=== PATIENT | female | born 1940 | race Caucasian/White ===

== ENCOUNTER 2019-10-06 09:15 | Day surgery (SDC) | payer MEDICARE ==
[2019-10-06] VITALS (10 sets, daily range): BP systolic 135–164; BP diastolic 57–68
[~2019-10-06] VITALS: Ht 154.9 cm; Wt 57.0 kg
[2019-10-06] MEDS ORDERED: normal saline 1,000 ML IV SCH (09:45)
[2019-10-06] MEDS ORDERED: diphenhydrAMINE 25mg capsule PO PRN (09:45)
[2019-10-06] MEDS ORDERED: HYDR12.55 PO (09:49)
[2019-10-06] MEDS ORDERED: AMIO200T62 PO (09:49)
[2019-10-06] MEDS ORDERED: EZET10TA6 PO (09:49)
[2019-10-06] MEDS ORDERED: AMLO5TAB PO (09:49)
[2019-10-06] MEDS ORDERED: LEVO100T PO (09:49)
[2019-10-06] MEDS ORDERED: POTA20TA19 PO (09:49)
[2019-10-06 10:37] LABS: BASOPHILS % (AUTO) 0.5 % (0-1); EOSINOPHILS % (AUTO) 0.2 % (0-6); HEMATOCRIT 41.5 % (35.0-45.0); HEMOGLOBIN 13.9 g/dl (12.0-16.0); LYMPHOCYTES # (AUTO) 1.1 X10'3 (1.1-4.8); LYMPHOCYTES % (AUTO) 12.2 % (21-51); MEAN CORPUSCULAR HEMOGLOBIN 35.5 PG (27.0-31.0); MEAN CORPUSCULAR HGB CONC 33.6 g/dL (33.0-36.5); MEAN CORPUSCULAR VOLUME 105.6 FL (78-98); MEAN PLATELET VOLUME 7.8 FL (7.4-10.4); MONOCYTES # (AUTO) 0.8 X10'3 (0-0.9); MONOCYTES % (AUTO) 9.5 % (2-12); NEUTROPHILS # (AUTO) 6.7 X10'3 (1.8-7.7); NEUTROPHILS % (AUTO) 77.6 % (42-75); PLATELET COUNT 245 X10'3 (140-440); RED BLOOD COUNT 3.93 X10'6 (4.20-5.60); RED CELL DISTRIBUTION WIDTH 12.4 % (11.5-14.5); WHITE BLOOD COUNT 8.6 X10'3 (4.5-11.0)
[2019-10-06 10:46] LABS: ALBUMIN 4.4 G/DL (3.4-5.0); ANION GAP 8 (8-16); BLOOD UREA NITROGEN 18 MG/DL (7-18); BUN/CREATININE RATIO 18.8 (6.6-38.0); CALCIUM 9.1 MG/DL (8.5-10.1); CHLORIDE 100 MMOL/L (99-107); CREATININE 0.96 MG/DL (0.40-0.90); GLUCOSE 99 MG/DL (70-104); MAGNESIUM 2.1 MG/DL (1.5-2.4); POTASSIUM 3.8 MMOL/L (3.5-5.1); SODIUM 136 MMOL/L (135-145); TOTAL CARBON DIOXIDE 28.4 MMOL/L (24-32); eGFR 56 ML/MIN
[2019-10-06] MEDS ORDERED: FLU VACC QS2019-20 36MOS UP/PF 60 MCG/0.5 ML SYRINGE IMVAC ONE (10:55)
[2019-10-06] MEDS ORDERED: midazolam 2 mg/2 ml injection ONE ×2 (11:40→12:12)
[2019-10-06] MEDS ORDERED: fentaNYL/PF 50MCG/1 ML 2ML syringe ONE (11:40)
[2019-10-06] MEDS ORDERED: iohexol 350MG/ML 100ml bottle IV ONE (11:41)
[2019-10-06] MEDS ORDERED: LIDOcaine 1% (10mg/ml)w/preservative injection 20ml MDV ONE (11:41)
[2019-10-06] MEDS ORDERED: iohexol 350 MG/ML 50ML vial IV ONE (11:41)
[2019-10-06] MEDS ORDERED: HYDROcodone/acetaminophen 10/325mg tab PO PRN (13:05)
[2019-10-06] MEDS ORDERED: proCHLORperazine 10 MG/2 ml inj IV PRN (13:05)
[2019-10-06] MEDS ORDERED: HYDROcodone/acetaminophen 5mg/325mg tablet PO PRN (13:05)
[2019-10-06] MEDS ORDERED: ondansetron/PF 4mg/2ml inj IV PRN (13:05)
== END 2019-10-06 16:45 | disposition home or self-care (01) ==
LOC: SSTAY O 09:15 → MED 3N 09:24 → SSTAY O 16:45
PROVIDERS: ATTEND Internal Medicine Cardiovascular Disease
DX: R07.9 Chest pain, unspecified (principal); R53.83 Other fatigue; I25.10 Atherosclerotic heart disease of native coronary artery without angina pectoris; I10 Essential (primary) hypertension; E03.9 Hypothyroidism, unspecified; I25.2 Old myocardial infarction; I35.0 Nonrheumatic aortic (valve) stenosis; F17.210 Nicotine dependence, cigarettes, uncomplicated; Z90.710 Acquired absence of both cervix and uterus; Z79.899 Other long term (current) drug therapy; Z98.890 Other specified postprocedural states; Z95.810 Presence of automatic (implantable) cardiac defibrillator; Z95.1 Presence of aortocoronary bypass graft; Z23 Encounter for immunization; Z72.89 Other problems related to lifestyle; Z88.2 Allergy status to sulfonamides; Z88.8 Allergy status to other drugs, medicaments and biological substances; Z88.5 Allergy status to narcotic agent; Z82.49 Family history of ischemic heart disease and other diseases of the circulatory system
CPT/HCPCS: 36415; 80048; 82948; 83735; 85025; 85610; 93005; 93459; 99152; 99153; C1769; C1894; G0008; J1644; J2001; J2250; J3010; Q0163; Q2037; Q9967; 76937; 93458; A4620; A6258; C1760

== ENCOUNTER 2022-12-24 07:15 | Emergency (ER) | payer MEDICARE ==
[~2022-12-24] VITALS: Ht 154.9 cm; Wt 56.1 kg
[~2022-12-24 07:15] MED LIST: AMIO200T72 PO; AMLO5TAB PO; EZET10TA6 PO; HYDR12.55 PO; LEVO100T PO; POTA-207 PO
[2022-12-24 07:27] VITALS: BP 150/76
[2022-12-24] MEDS ORDERED: HYDROcodone/acetaminophen 5mg/325mg tablet PO ONE (09:35)
[2022-12-24] MEDS ORDERED: HYDR-3965 PO (10:07)
== END 2022-12-24 10:22 | disposition home or self-care (01) ==
LOC: ER 07:15
DX: B02.9 Zoster without complications (principal); B02.29 Other postherpetic nervous system involvement; Z88.2 Allergy status to sulfonamides; Z88.8 Allergy status to other drugs, medicaments and biological substances; Z88.5 Allergy status to narcotic agent; Z79.899 Other long term (current) drug therapy
CPT/HCPCS: 99283

== ENCOUNTER 2023-06-29 12:28 | Outpatient (CLI) | payer MEDICARE ==
[~2023-06-29 12:28] MED LIST changes: +LYR75C PO
[2023-06-29 13:04] LABS: BASOPHILS % (AUTO) 0.5 % (0-1); EOSINOPHILS % (AUTO) 0.2 % (0-6); HEMATOCRIT 38.4 % (35.0-45.0); LYMPHOCYTES # (AUTO) 1.3 X10'3 (1.1-4.8); LYMPHOCYTES % (AUTO) 16.2 % (21-51); MEAN CORPUSCULAR HEMOGLOBIN 35.5 PG (27.0-31.0); MEAN CORPUSCULAR HGB CONC 33.9 g/dL (33.0-36.5); MEAN CORPUSCULAR VOLUME 104.8 FL (78-98); MEAN PLATELET VOLUME 7.3 FL (7.4-10.4); MONOCYTES # (AUTO) 0.8 X10'3 (0-0.9); MONOCYTES % (AUTO) 9.4 % (2-12); NEUTROPHILS % (AUTO) 73.7 % (42-75); PLATELET COUNT 225 X10'3 (140-440); RED BLOOD COUNT 3.66 X10'6 (4.20-5.60); RED CELL DISTRIBUTION WIDTH 12.6 % (11.5-14.5); WHITE BLOOD COUNT 8.1 X10'3 (4.5-11.0)
[2023-06-29 13:15] LABS: APTT 28 SECONDS (22-32); PROTHROMBIN TIME 10.8 SECONDS (9.0-12.0)
[2023-06-29 13:24] LABS: ALANINE AMINOTRANSFERASE 34 U/L (12-78); ALBUMIN 3.5 G/DL (3.4-5.0); ALBUMIN/GLOBULIN RATIO 0.9 (1.1-1.5); ALKALINE PHOSPHATASE 74 IU/L (46-116); ANION GAP 6 (8-16); ASPARTATE AMINO TRANSFERASE 32 U/L (10-37); BILIRUBIN,TOTAL 0.4 MG/DL (0.1-1.0); BLOOD UREA NITROGEN 20 MG/DL (7-18); CALCIUM 8.4 MG/DL (8.5-10.1); CHLORIDE 101 MMOL/L (99-107); CREATININE 1.11 MG/DL (0.40-0.90); GLUCOSE 99 MG/DL (70-104); POTASSIUM 4.3 MMOL/L (3.5-5.1); PRO BRAIN NATRIURETIC PEPTIDE 1148 PG/ML (0-450); SODIUM 137 MMOL/L (135-145); TOTAL CARBON DIOXIDE 30.1 MMOL/L (24-32); TOTAL PROTEIN 7.5 G/DL (6.4-8.2); eGFR 47 ML/MIN
[2023-06-29] MEDS ORDERED: IODIXANOL 320 MG/ML INFUS..BTL 100ML IV ONE ×2 (13:41)
== END 2023-06-29 23:59 | disposition home or self-care (01) ==
LOC: RAD 12:28
PROVIDERS: ATTEND Internal Medicine Cardiovascular Disease
DX: I51.7 Cardiomegaly (principal); I65.23 Occlusion and stenosis of bilateral carotid arteries; I35.0 Nonrheumatic aortic (valve) stenosis; R06.02 Shortness of breath; M47.816 Spondylosis without myelopathy or radiculopathy, lumbar region; M41.86 Other forms of scoliosis, lumbar region; M85.88 Other specified disorders of bone density and structure, other site
CPT/HCPCS: 36415; 71046; 71275; 74174; 75572; 80053; 83880; 85025; 85610; 85730; 93880; 94010; 94727; 94729; J3490; Q9967

== ENCOUNTER 2023-08-10 06:59 | Day surgery (SDC) | payer MEDICARE ==
[2023-08-10] VITALS (10 sets, daily range): BP systolic 121–126; BP diastolic 52–88; PULSE 50–59; RESP 16; TEMP 97.7; O2SAT 92–98
[~2023-08-10] VITALS: Ht 165.1 cm; Wt 53.8 kg
[2023-08-10] MEDS ORDERED: sodium bicarbonate 1meq/ml syr 150 ML in dextrose 5%-water 1,000 ML IV SCH (07:40)
[2023-08-10] MEDS ORDERED: OMEG1CAP61 PO (07:40)
[2023-08-10] MEDS ORDERED: normal saline 1,000 ML IV SCH (07:40)
[2023-08-10] MEDS ORDERED: diphenhydrAMINE 25mg capsule PO PRN (07:40)
[2023-08-10] MEDS ORDERED: ASPI81TA52 PO (07:40)
[2023-08-10] MEDS ORDERED: VITA1CAP PO (07:40)
[2023-08-10] MEDS ORDERED: ROSU10TA28 PO (07:41)
[2023-08-10 07:48] LABS: BASOPHILS % (AUTO) 0.7 % (0-1); EOSINOPHILS # (AUTO) 0.1 X10'3 (0-0.9); EOSINOPHILS % (AUTO) 0.8 % (0-6); HEMATOCRIT 37.2 % (35.0-45.0); LYMPHOCYTES # (AUTO) 1.4 X10'3 (1.1-4.8); LYMPHOCYTES % (AUTO) 21.6 % (21-51); MEAN CORPUSCULAR HEMOGLOBIN 35.9 PG (27.0-31.0); MEAN CORPUSCULAR HGB CONC 34.9 g/dL (33.0-36.5); MEAN CORPUSCULAR VOLUME 102.9 FL (78-98); MEAN PLATELET VOLUME 7.2 FL (7.4-10.4); MONOCYTES # (AUTO) 0.9 X10'3 (0-0.9); MONOCYTES % (AUTO) 13.9 % (2-12); NEUTROPHILS # (AUTO) 4.1 X10'3 (1.8-7.7); PLATELET COUNT 244 X10'3 (140-440); RED BLOOD COUNT 3.62 X10'6 (4.20-5.60); RED CELL DISTRIBUTION WIDTH 12.5 % (11.5-14.5); WHITE BLOOD COUNT 6.5 X10'3 (4.5-11.0)
[2023-08-10] MEDS ORDERED: heparin 1,000unit/ml 10ml vial 10 ML ONE (07:51)
[2023-08-10] MEDS ORDERED: iohexol 350MG/ML 100ml bottle IV ONE ×2 (07:51→08:56)
[2023-08-10] MEDS ORDERED: LIDOcaine 1% 30ml preserv. free vial ONE (07:51)
[2023-08-10] MEDS ORDERED: fentaNYL/PF 50MCG/1 ML 2ML syringe ONE (07:51)
[2023-08-10] MEDS ORDERED: midazolam 1 mg/ML 2ml injection ONE ×2 (07:51→09:15)
[2023-08-10] MEDS ORDERED: iohexol 350 MG/ML 50ML vial IV ONE (07:51)
[2023-08-10 09:14] LABS: PROTHROMBIN TIME 10.5 SECONDS (9.0-12.0)
[2023-08-10] MEDS ORDERED: clopidogrel 300mg tablet ONE (09:17)
[2023-08-10 09:30] LABS: ALBUMIN 3.9 G/DL (3.4-5.0); ANION GAP 9 (8-16); BLOOD UREA NITROGEN 24 MG/DL (7-18); BUN/CREATININE RATIO 25.8 (10.0-20.0); CALCIUM 8.7 MG/DL (8.5-10.1); CHLORIDE 101 MMOL/L (99-107); CREATININE 0.93 MG/DL (0.40-0.90); GLUCOSE 76 MG/DL (70-104); MAGNESIUM 2.2 MG/DL (1.5-2.4); POTASSIUM 3.7 MMOL/L (3.5-5.1); SODIUM 137 MMOL/L (135-145); TOTAL CARBON DIOXIDE 27.4 MMOL/L (24-32); eCRCL 40 ML/MIN; eGFR 58 ML/MIN
[2023-08-10] MEDS ORDERED: normal saline 1000ml 1,000 ML IV SCH (10:05)
[2023-08-10] MEDS ORDERED: proCHLORperazine 10 MG/2 ml inj IV PRN (10:05)
[2023-08-10] MEDS ORDERED: HYDROcodone/acetaminophen 10/325mg tab PO PRN (10:05)
[2023-08-10] MEDS ORDERED: HYDROcodone/acetaminophen 5mg/325mg tablet PO PRN (10:05)
[2023-08-10] MEDS ORDERED: ondansetron/PF 4mg/2ml inj IV PRN (10:05)
== END 2023-08-10 13:00 | disposition home or self-care (01) ==
LOC: SSTAY O 06:59
PROVIDERS: ATTEND Internal Medicine Cardiovascular Disease
DX: I25.10 Atherosclerotic heart disease of native coronary artery without angina pectoris (principal); I10 Essential (primary) hypertension; E03.9 Hypothyroidism, unspecified; E78.00 Pure hypercholesterolemia, unspecified; I35.0 Nonrheumatic aortic (valve) stenosis; I25.2 Old myocardial infarction; Z79.82 Long term (current) use of aspirin; Z79.890 Hormone replacement therapy; Z79.899 Other long term (current) drug therapy; Z95.810 Presence of automatic (implantable) cardiac defibrillator; Z88.2 Allergy status to sulfonamides; Z88.5 Allergy status to narcotic agent; Z88.8 Allergy status to other drugs, medicaments and biological substances
CPT/HCPCS: 36415; 80048; 82948; 83735; 85025; 85610; 93005; 93460; 99152; 99153; C1874; C9600; J1644; J2250; J3010; J3490; J7030; Q9967; A6258; A6449; C1725; C1751; C1760; C1769; C1894

== ENCOUNTER 2023-12-07 11:35 | Emergency (ER) | payer MEDICARE ==
[~2023-12-07] VITALS: Ht 152.4 cm; Wt 53.8 kg
[~2023-12-07 11:35] MED LIST changes: +ASPI81TA52 PO; +CIPR-259 PO; +IBUP-24 PO; -LYR75C PO; +OMEG1CAP61 PO; -POTA-207 PO; +ROSU10TA72 PO; +TICA90TA2 PO; +VITA1CAP PO; +VITAMIN D 3
[2023-12-07 12:06] LABS: BASOPHILS % (AUTO) 0.7 % (0-1); EOSINOPHILS % (AUTO) 0.4 % (0-6); HEMATOCRIT 39.3 % (35.0-45.0); HEMOGLOBIN 13.4 g/dl (12.0-16.0); LYMPHOCYTES # (AUTO) 1.5 X10'3 (1.1-4.8); LYMPHOCYTES % (AUTO) 20.2 % (21-51); MEAN CORPUSCULAR HEMOGLOBIN 35.5 PG (27.0-31.0); MEAN CORPUSCULAR HGB CONC 34.1 g/dL (33.0-36.5); MEAN CORPUSCULAR VOLUME 104.1 FL (78-98); MEAN PLATELET VOLUME 7.4 FL (7.4-10.4); MONOCYTES # (AUTO) 0.8 X10'3 (0-0.9); MONOCYTES % (AUTO) 11.7 % (2-12); NEUTROPHILS # (AUTO) 4.8 X10'3 (1.8-7.7); PLATELET COUNT 209 X10'3 (140-440); RED BLOOD COUNT 3.77 X10'6 (4.20-5.60); RED CELL DISTRIBUTION WIDTH 12.4 % (11.5-14.5); WHITE BLOOD COUNT 7.2 X10'3 (4.5-11.0)
[2023-12-07 12:27] LABS: ALANINE AMINOTRANSFERASE 29 U/L (12-78); ALBUMIN 3.9 G/DL (3.4-5.0); ALBUMIN/GLOBULIN RATIO 1.1 (1.1-1.5); ALKALINE PHOSPHATASE 92 IU/L (46-116); ANION GAP 8 (8-16); ASPARTATE AMINO TRANSFERASE 25 U/L (10-37); BILIRUBIN,TOTAL 0.3 MG/DL (0.1-1.0); BLOOD UREA NITROGEN 15 MG/DL (7-18); BUN/CREATININE RATIO 16.1 (10.0-20.0); CHLORIDE 103 MMOL/L (99-107); CREATININE 0.93 MG/DL (0.40-0.90); GLUCOSE 105 MG/DL (70-104); POTASSIUM 4.3 MMOL/L (3.5-5.1); SODIUM 138 MMOL/L (135-145); TOTAL CARBON DIOXIDE 26.7 MMOL/L (24-32); TOTAL PROTEIN 7.6 G/DL (6.4-8.2); eCRCL 34 ML/MIN; eGFR 58 ML/MIN
[2023-12-07 12:33] LABS: PRO BRAIN NATRIURETIC PEPTIDE 2020 PG/ML (0-450)
[2023-12-07] MEDS ORDERED: iohexol 350MG/ML 100ml bottle IV ONE (14:42)
[2023-12-07] MEDS ORDERED: CLOP75TA34 PO (14:48)
[2023-12-07] MEDS ORDERED: POTA-366 PO (15:17)
[2023-12-07] MEDS ORDERED: FURO20TA4 PO (16:04)
[2023-12-07 16:59] VITALS: BP 134/80; PULSE 78; RESP 15; TEMP 97.9; O2SAT 98
== END 2023-12-07 17:02 | disposition home or self-care (01) ==
LOC: ER 11:36
DX: R06.09 Other forms of dyspnea (principal); R07.81 Pleurodynia; I25.2 Old myocardial infarction; Z88.2 Allergy status to sulfonamides; Z88.8 Allergy status to other drugs, medicaments and biological substances; Z79.899 Other long term (current) drug therapy; Z79.82 Long term (current) use of aspirin; Z98.890 Other specified postprocedural states
CPT/HCPCS: 36415; 71045; 71275; 80053; 83880; 84484; 85025; 93005; 99285; Q9967

== ENCOUNTER 2024-09-12 15:47 | Inpatient (IN) | payer MEDICARE ==
[~2024-09-12] VITALS: Ht 154.9 cm; Wt 52.2 kg
[~2024-09-12 15:47] MED LIST changes: -CIPR-259 PO; +CLOP75TA34 PO; +FURO20TA4 PO; +POTA-366 PO
[2024-09-12 16:25] LABS: BASOPHILS # (AUTO) 0.1 X10'3 (0-0.2); BASOPHILS % (AUTO) 0.6 % (0-1); EOSINOPHILS % (AUTO) 0.2 % (0-6); HEMATOCRIT 38.6 % (35.0-45.0); LYMPHOCYTES # (AUTO) 1.7 X10'3 (1.1-4.8); LYMPHOCYTES % (AUTO) 19.2 % (21-51); MEAN CORPUSCULAR HEMOGLOBIN 34.4 PG (27.0-31.0); MEAN CORPUSCULAR HGB CONC 33.7 g/dL (33.0-36.5); MEAN CORPUSCULAR VOLUME 102.1 FL (78-98); MEAN PLATELET VOLUME 8.2 FL (7.4-10.4); MONOCYTES # (AUTO) 1.5 X10'3 (0-0.9); MONOCYTES % (AUTO) 16.6 % (2-12); NEUTROPHILS # (AUTO) 5.6 X10'3 (1.8-7.7); NEUTROPHILS % (AUTO) 63.4 % (42-75); PLATELET COUNT 167 X10'3 (140-440); RED BLOOD COUNT 3.78 X10'6 (4.20-5.60); RED CELL DISTRIBUTION WIDTH 12.9 % (11.5-14.5); WHITE BLOOD COUNT 8.8 X10'3 (4.5-11.0)
[2024-09-12 16:38] LABS: ALANINE AMINOTRANSFERASE 14 U/L (12-78); ALBUMIN 3.5 G/DL (3.4-5.0); ALBUMIN/GLOBULIN RATIO 1.1 (1.1-1.5); ALKALINE PHOSPHATASE 118 IU/L (46-116); ANION GAP 7 (8-16); ASPARTATE AMINO TRANSFERASE 18 U/L (10-37); BILIRUBIN,TOTAL 0.6 MG/DL (0.1-1.0); BLOOD UREA NITROGEN 21 MG/DL (7-18); BUN/CREATININE RATIO 9.7 (10.0-20.0); CALCIUM 8.7 MG/DL (8.5-10.1); CHLORIDE 104 MMOL/L (99-107); CREATININE 2.16 MG/DL (0.40-0.90); GLUCOSE 106 MG/DL (70-104); POTASSIUM 4.5 MMOL/L (3.5-5.1); SODIUM 135 MMOL/L (135-145); TOTAL CARBON DIOXIDE 24.3 MMOL/L (24-32); TOTAL PROTEIN 6.6 G/DL (6.4-8.2); eCRCL 15 ML/MIN; eGFR 22 ML/MIN
[2024-09-12 16:45] LABS: PRO BRAIN NATRIURETIC PEPTIDE 16504 PG/ML (0-450)
[2024-09-12 16:46] LABS: PLATELET ESTIMATE NORMAL; STOMATOCYTES FEW; TOTAL CELLS COUNTED 100
[2024-09-12] MEDS ORDERED: normal saline 1000ml 1,000 ML IV ONE (17:35)
[2024-09-12] MEDS ORDERED: heparin 10,000 units/1 ML INJ IV ONE (17:35)
[2024-09-12] MEDS ORDERED: heparin 10,000 units/1 ML INJ IV PRN (17:40)
[2024-09-12] MEDS: aspirin 81mg tab.chew PO ONE (18:00)
[2024-09-12] MEDS: nitroGLYCERIN 0.2mg/hour patch TD ONE (18:01)
[2024-09-12] MEDS: heparin 10,000 units/1 ML INJ IV ONE (18:07)
[2024-09-12] MEDS: heparin 25,000 UNIT/250ml bag 250 ML IV PRN (18:10)
[2024-09-12] MEDS: MESSAGE TO NURSING IV ONE (18:11)
[2024-09-12] MEDS ORDERED: magnesium sulf-water 2g/50mL 50 ML IV PRN (18:15)
[2024-09-12] MEDS ORDERED: potassium Cl 40MEQ/1/2NS 520ml 520 ML IV PRN (18:15)
[2024-09-12] MEDS ORDERED: mag hydrox/Alum hydrox/simeth 30ml oral suspension PO PRN (18:15)
[2024-09-12] MEDS ORDERED: magnesium Cl slow-release 64mg tablet PO PRN (18:15)
[2024-09-12] MEDS ORDERED: magnesium sulf-water 4G/100mL 100 ML IV PRN (18:15)
[2024-09-12] MEDS ORDERED: acetaminophen 325mg tablet PO PRN ×2 (18:15)
[2024-09-12] MEDS ORDERED: ondansetron/PF 4mg/2ml inj IV PRN (18:15)
[2024-09-12] MEDS ORDERED: potassium Cl 20 mEq SR tablet PO PRN ×2 (18:15)
[2024-09-12 18:22] LABS: APTT 31 SECONDS (22-32); INR 1.1 INR; PROTHROMBIN TIME 11.1 SECONDS (9.0-12.0)
[2024-09-12] MEDS ORDERED: nitroGLYCERIN 0.4mg SUBLingual tab SL PRN (18:35)
[2024-09-12 19:34] LABS: HEMOGLOBIN A1C 5.6 % (4.5-6.2)
[2024-09-12] MEDS: furosemide 10 MG/1 ML 10ml inj IV ONE (19:53)
[2024-09-12] MEDS: FOSFOMYCIN TROMETHAMINE 3 GM PACKET PO ONE (19:53)
[2024-09-12] MEDS: K and/or MAG REPLACEMENT MC SCH (20:18)
[2024-09-12 22:00] VITALS: BP 171/92; PULSE 74; PULSE 79; RESP 20; TEMP 97.4; TEMP 97.9; O2SAT 98
[2024-09-12 23:23] LABS: BILIRUBIN,URINE NEGATIVE (Neg); CLARITY,URINE CLEAR (Clear); COLOR,URINE YELLOW (Yellow); GLUCOSE, URINE NEGATIVE (Neg); KETONES,URINE NEGATIVE (Neg); LEUKOCYTE ESTERASE ,URINE SMALL (Neg); NITRITES, URINE NEGATIVE (Neg); OCCULT BLOOD,URINE NEGATIVE (Neg); PH,URINE 5.5 (4.8-8.0); PROTEIN,URINE NEGATIVE (Neg); UROBILINOGEN,URINE 0.2 E.U/dL (0.2-1.0)
[2024-09-12 23:29] LABS: UA COLLECTION TYPE CLN CATCH MIDSTREAM
[2024-09-12 23:35] LABS: BACTERIA,URINE NONE SEEN /HPF (Neg); RBC,URINE NONE SEEN /HPF (0-2); SQUAMOUS EPITHELIAL CELL,UR NONE SEEN /LPF (FEW); WBC,URINE NONE SEEN /HPF (0-4)
[2024-09-12 23:39] LABS: URINE AMPHETAMINE SCREEN NEGATIVE (Neg); URINE BARBITUATE SCREEN NEGATIVE (Neg); URINE BENZODIAZEPINES SCREEN NEGATIVE (Neg); URINE CANNABINOID SCREEN NEGATIVE (Neg); URINE COCAINE SCREEN NEGATIVE (Neg); URINE METHADONE SCREEN NEGATIVE (Neg); URINE OPIATE SCREEN NEGATIVE (Neg); URINE PHENCYCLIDINE SCREEN NEGATIVE (Neg)
[2024-09-13] VITALS (8 sets, daily range): BP systolic 86–160; BP diastolic 57–92; PULSE 69–92; RESP 14–22; TEMP 97.3–98.8; O2SAT 90–99
[2024-09-13] MEDS: MESSAGE TO NURSING IV ONE ×2 (01:05→09:23)
[2024-09-13 06:41] LABS: BASOPHILS # (AUTO) 0.1 X10'3 (0-0.2); BASOPHILS % (AUTO) 0.7 % (0-1); EOSINOPHILS % (AUTO) 0.5 % (0-6); HEMATOCRIT 37.2 % (35.0-45.0); HEMOGLOBIN 12.6 g/dl (12.0-16.0); LYMPHOCYTES # (AUTO) 1.5 X10'3 (1.1-4.8); LYMPHOCYTES % (AUTO) 20.9 % (21-51); MEAN CORPUSCULAR HEMOGLOBIN 34.8 PG (27.0-31.0); MEAN CORPUSCULAR VOLUME 102.5 FL (78-98); MEAN PLATELET VOLUME 8.5 FL (7.4-10.4); MONOCYTES # (AUTO) 1.1 X10'3 (0-0.9); NEUTROPHILS # (AUTO) 4.6 X10'3 (1.8-7.7); NEUTROPHILS % (AUTO) 62.9 % (42-75); PLATELET COUNT 157 X10'3 (140-440); RED BLOOD COUNT 3.63 X10'6 (4.20-5.60); RED CELL DISTRIBUTION WIDTH 13.2 % (11.5-14.5); WHITE BLOOD COUNT 7.3 X10'3 (4.5-11.0)
[2024-09-13 06:47] LABS: INR 1.1 INR
[2024-09-13 07:02] LABS: ALANINE AMINOTRANSFERASE 15 U/L (12-78); ALBUMIN 3.3 G/DL (3.4-5.0); ALKALINE PHOSPHATASE 110 IU/L (46-116); ANION GAP 11 (8-16); ASPARTATE AMINO TRANSFERASE 20 U/L (10-37); BILIRUBIN,TOTAL 0.6 MG/DL (0.1-1.0); BLOOD UREA NITROGEN 27 MG/DL (7-18); BUN/CREATININE RATIO 11.6 (10.0-20.0); CALCIUM 8.5 MG/DL (8.5-10.1); CHLORIDE 100 MMOL/L (99-107); CHOL/HDL RATIO 3.9 (0.00-4.99); CHOLESTEROL 178 MG/DL (0-200); CREATININE 2.33 MG/DL (0.40-0.90); GLUCOSE 84 MG/DL (70-104); HDL CHOLESTEROL 46 MG/DL (35-60); LDL CHOLESTEROL 110 MG/DL (50-100); PHOSPHORUS 4.2 MG/DL (2.3-4.5); POTASSIUM 3.9 MMOL/L (3.5-5.1); SODIUM 135 MMOL/L (135-145); TOTAL CARBON DIOXIDE 24.3 MMOL/L (24-32); TOTAL PROTEIN 6.5 G/DL (6.4-8.2); TRIGLYCERIDES 89 MG/DL (20-135); eCRCL 14 ML/MIN; eGFR 20 ML/MIN
[2024-09-13 08:38] LABS: THYROID STIMULATING HORMONE 0.06 ulU/ml (0.34-4.50)
[2024-09-13] MEDS: ezetimibe 10mg tablet PO SCH (09:08)
[2024-09-13] MEDS: furosemide 40mg/4ml inj IV SCH (09:08)
[2024-09-13] MEDS: levoTHYROXINE 25mcg tablet PO SCH (09:09)
[2024-09-13] MEDS: amLODIPine 5mg tablet PO SCH (09:10)
[2024-09-13] MEDS: amiodarone 200mg tablet PO SCH (09:11)
[2024-09-14 06:00] VITALS: BP 133/49; PULSE 69; RESP 18; TEMP 97.9; O2SAT 98
[2024-09-14 06:39] LABS: BASOPHILS % (AUTO) 0.7 % (0-1); EOSINOPHILS % (AUTO) 0.5 % (0-6); HEMATOCRIT 39.1 % (35.0-45.0); HEMOGLOBIN 13.2 g/dl (12.0-16.0); LYMPHOCYTES # (AUTO) 1.9 X10'3 (1.1-4.8); LYMPHOCYTES % (AUTO) 27.3 % (21-51); MEAN CORPUSCULAR HEMOGLOBIN 34.4 PG (27.0-31.0); MEAN CORPUSCULAR HGB CONC 33.8 g/dL (33.0-36.5); MEAN CORPUSCULAR VOLUME 101.7 FL (78-98); MEAN PLATELET VOLUME 8.4 FL (7.4-10.4); MONOCYTES # (AUTO) 1.1 X10'3 (0-0.9); MONOCYTES % (AUTO) 16.3 % (2-12); NEUTROPHILS # (AUTO) 3.8 X10'3 (1.8-7.7); NEUTROPHILS % (AUTO) 55.2 % (42-75); PLATELET COUNT 185 X10'3 (140-440); RED BLOOD COUNT 3.84 X10'6 (4.20-5.60); RED CELL DISTRIBUTION WIDTH 12.7 % (11.5-14.5)
[2024-09-14 06:50] LABS: ALANINE AMINOTRANSFERASE 18 U/L (12-78); ALBUMIN 3.4 G/DL (3.4-5.0); ALKALINE PHOSPHATASE 108 IU/L (46-116); ANION GAP 10 (8-16); ASPARTATE AMINO TRANSFERASE 21 U/L (10-37); BILIRUBIN,TOTAL 0.6 MG/DL (0.1-1.0); BLOOD UREA NITROGEN 38 MG/DL (7-18); BUN/CREATININE RATIO 18.2 (10.0-20.0); CALCIUM 8.6 MG/DL (8.5-10.1); CHLORIDE 101 MMOL/L (99-107); CREATININE 2.09 MG/DL (0.40-0.90); GLUCOSE 73 MG/DL (70-104); MAGNESIUM 2.1 MG/DL (1.5-2.4); POTASSIUM 3.9 MMOL/L (3.5-5.1); SODIUM 137 MMOL/L (135-145); TOTAL CARBON DIOXIDE 25.8 MMOL/L (24-32); TOTAL PROTEIN 6.8 G/DL (6.4-8.2); eCRCL 15 ML/MIN; eGFR 23 ML/MIN
[2024-09-14 08:00] VITALS: RESP 20; O2SAT 97
[2024-09-14] MEDS ORDERED: furosemide 20 MG/2 ML vial IV SCH (08:00)
[2024-09-14] MEDS: furosemide 20 MG/2 ML vial IV SCH (09:14)
[2024-09-14] MEDS: atorvastatin 20mg tablet PO SCH (09:20)
[2024-09-14] MEDS ORDERED: FURO-150 PO (10:12)
[2024-09-14 11:00] VITALS: BP 132/61; PULSE 78; RESP 18; TEMP 97.9; O2SAT 97
== END 2024-09-14 13:15 | disposition home health service (06) | DRG 280 ==
LOC: ER 15:48 → ED HOLD 17:35 → PCU 3S 22:55
PROVIDERS: ADMIT Internal Medicine; ATTEND Internal Medicine
DX: I11.0 Hypertensive heart disease with heart failure (principal); I50.33 Acute on chronic diastolic (congestive) heart failure; I21.A1 Myocardial infarction type 2; N17.0 Acute kidney failure with tubular necrosis; I38 Endocarditis, valve unspecified; N30.00 Acute cystitis without hematuria; I48.91 Unspecified atrial fibrillation; I35.0 Nonrheumatic aortic (valve) stenosis; I25.10 Atherosclerotic heart disease of native coronary artery without angina pectoris; Z95.5 Presence of coronary angioplasty implant and graft; Z95.810 Presence of automatic (implantable) cardiac defibrillator; Z88.2 Allergy status to sulfonamides; Z88.5 Allergy status to narcotic agent; Z88.8 Allergy status to other drugs, medicaments and biological substances
CPT/HCPCS: 36415; 71045; 80053; 80061; 80305; 81001; 82948; 83036; 83605; 83735; 83880; 84100; 84443; 84484; 85007; 85025; 85610; 85730; 87040; 87081; 93005; 93306; 97116; 97161; 97530; 99291; G0378; J1644; J1940; J7030

== ENCOUNTER 2024-12-28 16:59 | Inpatient (IN) | payer MEDICARE ==
[~2024-12-28] VITALS: Ht 154.9 cm; Wt 49.1 kg
[~2024-12-28 16:59] MED LIST changes: +ACET325T59 PO; +ALB0.5UD IH; +AMLO2.5T2 PO; -AMLO5TAB PO; +APIX5TAB3 PO; +CLOP-32 PO; -CLOP75TA34 PO; -FURO20TA4 PO; -HYDR12.55 PO; -IBUP-24 PO; -LEVO100T PO; +LEVO100T9 PO; +METO-395 PO; -POTA-366 PO; -TICA90TA2 PO; -VITA1CAP PO; -VITAMIN D 3
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
[2024-12-28 18:48] LABS: MEAN PLATELET VOLUME 7.1 FL (7.4-10.4); RED CELL DISTRIBUTION WIDTH 13.4 % (11.5-14.5)
--- NOTE | 2024-12-28 18:51 | ELECTROCARDIOGRAPH REPORT ---
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 Bienvenido Ivy Measurements Intervals [place] Rate: 95 P: 0 CA: 0 QRS: 29 QRSD: 106 T: 258 QT: 365 QTc: 459 Interpretive Statements Atrial flutter Ventricular premature complex Nonspecific T abnormalities, lateral leads Electronically Signed On 12-31-2024 19:16:[address] Bienvenido Ivy Please click the below link to view image of tracing.
[2024-12-28 18:53] LABS: CREATININE 0.98 MG/DL (0.40-0.90); TOTAL CARBON DIOXIDE 23.7 MMOL/L (24-32); eCRCL 33 ML/MIN; eGFR 54 ML/MIN
--- NOTE | 2024-12-28 18:54 | RADIOLOGY REPORT ---
DI CHEST,SINGLE VIEW, HISTORY: CHEST PAIN, LEFT HIP FX COMPARISON: DI CHEST,SINGLE VIEW on DOS: 12/07/24, DI CHEST,SINGLE VIEW on DOS: 11/22/24, DI CHEST,SING LE VIEW on DOS: 11/04/24 DI CHEST,SINGLE VIEW on DOS: 12/07/24, DI CHEST,SINGLE VIEW on DOS: 11/22/24, DI CHEST,SINGLE VIEW on D OS: 11/04/24 TECHNICAL DATA: 1 view of the chest was obtained. FINDINGS: Lines and tubes: A cardiac pacer is seen. Cardiomediastinal silhouette: Prominent Pulmonary vasculature: Prominent Lung expansion: normal Lung airspace: normal Lung interstitium: normal Pleura: normal Pneumothorax: no Bones: Unremarkable Other: no IMPRESSION: Cardiomegaly with mild congestion.
--- NOTE | 2024-12-28 18:55 | RADIOLOGY REPORT ---
DI HIP UNILATERAL 2 VIEWS, INDICATION: HIP PAIN TECHNICAL DATA: Frontal and frog lateral views were obtained of the left hip. COMPARISON: None FINDINGS: Comminuted, displaced left femoral neck fracture. The left sacroiliac joint appears normal. IMPRESSION: Comminuted, displaced left femoral neck fracture.
--- NOTE | 2024-12-28 19:58 | RADIOLOGY REPORT ---
CT CT HEAD INDICATION: ams COMPARISON: CT CT HEAD on DOS: 11/04/24 TECHNIQUE: CT of the head without intravenous contrast. RADIATION DOSE: CTDIvol: 50.3 mGy, DLP: 924 mGy*cm FINDINGS: Suboptimal head positioning within the scanner. There is no evidence of acute intracranial hemorrhage, extra-axial collection, mass effect, midline s hift, herniation or hydrocephalus. The ventricles, sulci and cisterns are commensurate in size with a [id number]-sh-[id number] degree of cerebra l volume loss. The forrest-white differentiation is intact. Patchy periventricular and subcortical white matter hypoatt enuation is nonspecific but is similar from prior and commonly due to chronic microvascular ischemia. There is atherosclerotic calcification in the carotid siphons and V4 vertebral arteries. The visualized paranasal sinuses and mastoid air cells are clear. The surrounding soft tissues and osseous structures are unremarkable. Bilateral lens replacements. IMPRESSION: No evidence of acute hemorrhage or large territory infarct. Patchy white matter hypodensity is commonly due to chronic microvascular ischemia. No significant int erval change.
[2024-12-28 21:47] LABS: LEUKOCYTE ESTERASE ,URINE NEGATIVE (Neg); NITRITES, URINE NEGATIVE (Neg); OCCULT BLOOD,URINE NEGATIVE (Neg)
[2024-12-28 21:48] LABS: UA COLLECTION TYPE NON-SPECIFIED
[2024-12-28] MEDS: normal saline 1000ml 1,000 ML IV ONE (22:26)
[2024-12-28] MEDS ORDERED: magnesium sulf-water 2g/50mL 50 ML IV PRN (23:50)
[2024-12-28] MEDS ORDERED: magnesium hydroxide 30ml (MOM) UD suspension PO PRN (23:50)
[2024-12-28] MEDS ORDERED: potassium Cl 40MEQ/1/2NS 520ml 520 ML IV PRN (23:50)
[2024-12-28] MEDS ORDERED: magnesium Cl slow-release 64mg tablet PO PRN (23:50)
[2024-12-28] MEDS ORDERED: mag hydrox/Alum hydrox/simeth 30ml oral suspension PO PRN (23:50)
[2024-12-28] MEDS ORDERED: potassium Cl 20 mEq SR tablet PO PRN (23:50)
[2024-12-28] MEDS ORDERED: ondansetron/PF 4mg/2ml inj IV PRN (23:50)
[2024-12-28] MEDS ORDERED: magnesium sulf-water 4G/100mL 100 ML IV PRN (23:50)
[2024-12-29] MEDS: normal saline 1000ml 1,000 ML IV SCH (00:44)
--- NOTE | 2024-12-29 01:45 | HISTORY AND PHYSICAL-Residence ---
History & Physical Providers to CC Resident Creating Document: RYDER STAPLES, RES CC: PASCUAL DIAZ MD ~ History of Present Illness Primary Medical Doctor: Dr. Rolon Reason for Admit\Complaint: Fall History of Present Illness An 84-year-old female who is a poor historian with unknown baseline mental status presented to the ED after she fell. Patient was not able to describe how she fell. Patient denies dizziness, chest pain, palpitations, shortness of breath prior to the fall. Patient also denies involuntary bowel and bladder movements. Patient denies burning micturition. Allergies: Coded Allergies: Sulfa (Sulfonamide Antibiotics) (Verified Adverse Reaction, Severe, GI BLEED, 12/28/24) Opioids - Morphine Analogues (Verified Adverse Reaction, Unknown, HALLUCINATION, HYPOTENSION, HYPOGLYCEMIA, 12/28/24) simvastatin (Verified Adverse Reaction, Unknown, STOMACH UPSET, 12/28/24) Home Medications Home Medications Active Levothyroxine Sodium 100 Mcg Tablet 100 Mcg PO DAILY@07 30 Days Reported Metoprolol Succinate 25 Mg Tab.sr.24h 1 Tab PO DAILY 30 Days Proventil Nebs* (Albuterol) 2.5 Mg/0.5 Ml Vial.neb 2.5 Mg IH Q6H PRN Plavix (Clopidogrel Bisulfate) 75 Mg Tablet 1 Tab PO DAILY 30 Days Norvasc* (Amlodipine Besylate) 2.5 Mg Tablet 1 Tab PO DAILY 30 Days Acetaminophen 325 Mg Tablet 1 Tab PO Q6H PRN 30 Days Eliquis (Apixaban) 5 Mg Tablet 1 Tab PO Q12H 30 Days Rosuvastatin Calcium 10 Mg Tablet 1 Tab PO DAILY Aspirin EC (Aspirin) 81 Mg Tablet. 1 Tab PO BID 30 Days Lovaza* (Cambridge-3 Acid Ethyl Esters*) 1 Gm Capsule 1 Cap PO TID Zetia (Ezetimibe) 10 Mg Tablet 1 Tab PO DAILY Amiodarone HCl* (Amiodarone HCl) 200 Mg Tablet 1 Tab PO DAILY Past Medical History Past Medical History HTN HLD AFib CAD status post CABG status post TAVR VT status post AICD Past Surgical History Surgical History Comment CABG TAVR AICD Past Social History Social History Comment Does not smoke, use illicit drugs, marijuana, consume alcohol Sees Dr. Rolon for Cardiology Was not able to recall the primary care provider's name Alcohol Use: None Drug Use: None Lives In: Home Occupation: retired ROS ROS All other systems reviewed and negative except for the pertinent positives mentioned in the HPI Unable to obtain: altered mental status Exam Vitals: Vital Signs Date Time Temp Pulse Resp B/P (MAP) Pulse Ox O2 Delivery O2 Flow Rate FiO2 12/29/24 00:48 97.8 74 16 109/62 (78) 94 0 General: General: Elderly female, Confused, not oriented to time place and person HEENT: PERRLA, no icterus, pallor, lymphadenopathy, carotid bruit Respiratory system: Bilateral vesicular breath sounds heard, no adventitious breath sounds, linear surgical scar in the chest CVS: Irregularly irregular heart rate, S1-S2 heard, grade 3/6 ejection click murmur in the aortic area GI: Soft, nontender, no organomegaly, no guarding/rigidity, bowel sounds present Neuro: Could not be elicited as the patient was non cooperative and has pain in the left lower extremity Extremities: Tenderness in the left lower extremity, was unable to move, No edema cyanosis clubbing/deformities Skin: Warm and dry Diagnostic Data Last Recorded Lab Results: 12/28/24183312/28/241833 Advance Care Planning Advanced Care plannin - 30 Minutes (I spent 20 minutes discussing various resuscitative measures and the patient decided to be full code) Additional Plan Assessment: An 84-year-old female with multiple medical comorbidities presented to the ED after fall. In the ED on further investigations patient was found to have left femoral neck fracture. Patient is admitted for the evaluation management of left femoral neck fracture. Plan: Mechanical fall Left femoral neck fracture Syncope, rule out Hip x-ray: Left Comminuted, displaced left femoral neck fracture. Pain management NPO Consult with Orthopedic in a.m. Fall precautions PT eval and treat AMS Unknown baseline mental status Head CT: Patchy white matter hypodensity is commonly due to chronic microvascular ischemia. No significant interval change. UA: Normal Chest x-ray: Cardiomegaly with mild congestion. Continue to monitor telemetry, follow up with orthostatic vitals Chronic hyponatremia Cause Under evaluation Sodium levels: 127 Continue to monitor sodium levels Follow up with the urine and serum osmolality, urine sodium Mild prerenal PREMA probably secondary to renal tubular stasis Elevated creatinine Continue to monitor BMP CAD status post CABG status post TAVR Pending med rec Start aspirin after surgery Consider optimization with GDM T AFib status post pacemaker VT status post AICD [id number]: 7 EKG: Atrial flutter, rate controlled Pending med rec HFrEF, EF: 40-50% Not in acute exacerbation Continue optimization GDM T after medical reconciliation HTN Currently blood pressure is in the softer side Hold antihypertensives Diabetes mellitus Follow up on A1c HLD Follow up on lipid panel Med rec pending Code status: Full code Diet: NPO DVT prophylaxis: SCD Disposition: Admit to PCU, ortho consult in a.m. Ryder Staples MD Internal Medicine, PGY 2 Pt was seen and discussed with the resident team Had a fall was dehydrated and hyponatremic rehydration ongoing ortho consulted for the AM Date of Service: Dec 29, 2024 Billing Provider: PASCUAL DIAZ MD, SIVA, RES Dec 29, 2024 01:44 PASCUAL DIAZ MD Dec 29, 2024 04:29
[2024-12-29] MEDS ORDERED: LOSA-415 PO (04:33)
[2024-12-29] MEDS ORDERED: APIX2.5T PO (04:34)
[2024-12-29] MEDS ORDERED: DOCU-148 PO (04:35)
[2024-12-29] MEDS ORDERED: PPD ID (04:36)
[2024-12-29] MEDS ORDERED: MIDO2.5T PO (04:37)
[2024-12-29 07:02] LABS: MEAN PLATELET VOLUME 7.2 FL (7.4-10.4); RED CELL DISTRIBUTION WIDTH 13.3 % (11.5-14.5)
[2024-12-29 07:08] LABS: CHOL/HDL RATIO 1.7 (0.00-4.99); CREATININE 0.89 MG/DL (0.40-0.90); LDL CHOLESTEROL 22 MG/DL (50-100); TOTAL CARBON DIOXIDE 23.9 MMOL/L (24-32); eCRCL 36 ML/MIN; eGFR 61 ML/MIN
[2024-12-29 07:20] LABS: OSMOLALITY 273 MOSM/K (280-300)
[2024-12-29] MEDS: K and/or MAG REPLACEMENT MC SCH (08:00)
[2024-12-29] MEDS: docusate sod 100mg capsule PO SCH (08:00)
[2024-12-29 08:03] VITALS: BP 102/47; PULSE 88; RESP 14; TEMP 97.4; O2SAT 94
[2024-12-29 09:00] VITALS: RESP 16
[2024-12-29 11:00] VITALS: BP 135/81; PULSE 64; RESP 18; TEMP 97.8; O2SAT 90
[2024-12-29] MEDS: potassium Cl 20 mEq SR tablet PO PRN (13:44)
[2024-12-29] MEDS ORDERED: SODI1TAB2 PO (17:55)
[2024-12-29] MEDS ORDERED: LEVO112T52 PO (17:55)
--- NOTE | 2024-12-29 17:57 | CARDIOLOGY REPORT ---
APPROVED REPORT EXAM: Limited 2D, Doppler, and color-flow Echocardiogram. Patient Location: [address] Blood Pressure: 135/81 mmHg Heart Rate: 86-101 bpm Rhythm: ATRIAL FIBRILLATION w/FREQUENT PVCs Indications CONGESTIVE HEART FAILURE CAD, CABG X1 '? 23 MM RITCHIE EUGENIO 3 ULTRA RESILIA AVR 09/13/23 [facility] Assistant Manager: Angel Rolon, Previous echo: 12/07/24 [facility] (EF 45-50%, multisegmental WMAs, AVR pk / mn grad 29 / 15 mmHg, pkV 2.70 m/s, trace TR) 2D Dimensions IVSd 1.4 (0.7-1.1cm) LVDd 4.6 cm PWd 1.4 (0.7-1.1cm) IVSs 1.4 (0.8-1.2cm) LVDs 3.7 (2.5-4.0cm) PWs 1.4 (0.8-1.2cm) FS (%) 19.1 % SV 37.9 ml CO 3.4 L/min Aortic Valve AoV Peak Black. 256.8 cm/s AoV VTI 37.0 cm AO Peak GR. 26.4 mmHg AO Mean GR. 14 mmHg Tricuspid Valve TR P. Velocity 379 cm/s RAP ESTIMATE 10 mmHg TR Peak Gr. 57 mmHg RVSP 67 mmHg LEFT VENTRICLE Normal LV size. Mild/mod. concentric hypertrophy. LVEF appears to be about 55-60% at the base, decrea sing to about 10% at the apex. Apical septal and apical aneurysm is present and visualized in loops 2 , 10-15, 18, 28-31. 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 AORTIC VALVE 23 mm Ritchie Eugenio 3 Ultra Resilia TAVR is in place and functioning well. Peak / mean Bioprosthetic AoV with gradients of 26 / 14 mmHg. Peak velocity is measured at 2.56 m/s. ?Trivial central regurgit ation. MITRAL VALVE Mild MV annular calcification and leaflet thickening without stenosis. Mild regurgitation. TRICUSPID VALVE TV appears structurally normal with moderate regurgitation, increased from 12/07/24 exam. PERICARDIUM Normal pericardium. No effusion. Other Information Study Quality: Adequate, but difficult due to lack of patient cooperation. Patient seemed confused, w as noncoooperative with positioning for exam.
[2024-12-29 18:00] VITALS: BP 146/81; PULSE 82; RESP 18; TEMP 98.1; O2SAT 93
--- NOTE | 2024-12-29 18:22 | DISCHARGE SUMMARY-Residence ---
Discharge Summary Providers to CC Resident Creating Document: KAYLA DALY, RES ~ Discharge Summary Admission Diagnosis: Left Femoral neck fracture, AMS work up Hospital Course DATE OF ADMISSION: 2024 DATE OF DISCHARGE: 12/29/2024 CHEST X-RAY FINDINGS: Lines and tubes: A cardiac pacer is seen. Cardiomediastinal silhouette: Prominent Pulmonary vasculature: Prominent Lung expansion: normal Lung airspace: normal Lung interstitium: normal Pleura: normal Pneumothorax: no Bones: Unremarkable Other: no IMPRESSION: Cardiomegaly with mild congestion. Hip x-ray on 12/28/24 FINDINGS: Comminuted, displaced left femoral neck fracture. The left sacroiliac joint appears normal. IMPRESSION: Comminuted, displaced left femoral neck fracture. Head CT: Showed chronic microvascular ischemic changes. Echocardiogram on 12/29/2024 EXAM: Limited 2D, Doppler, and color-flow Echocardiogram. Patient Location: [facility] Blood Pressure: 135/81 mmHg Heart Rate: 86-101 bpm Rhythm: ATRIAL FIBRILLATION w/FREQUENT PVCs Indications CONGESTIVE HEART FAILURE CAD, CABG X1 '? 23 MM LANTIGUA EUGENIO 3 ULTRA RESILIA AVR 09/13/23 [facility] [employer] Officer: Angel Rolon DO Previous echo: 12/07/24 [facility] (EF 45-50%, multisegmental WMAs, AVR pk / mn grad 29 / 15 mmHg, pkV 2.70 m/s, trace TR) 2D Dimensions IVSd 1.4 (0.7-1.1cm) LVDd 4.6 cm PWd 1.4 (0.7-1.1cm) IVSs 1.4 (0.8-1.2cm) LVDs 3.7 (2.5-4.0cm) PWs 1.4 (0.8-1.2cm) FS (%) 19.1 % SV 37.9 ml CO 3.4 L/min Aortic Valve AoV Peak Black. 256.8 cm/s AoV VTI 37.0 cm AO Peak GR. 26.4 mmHg AO Mean GR. 14 mmHg Tricuspid Valve TR P. Velocity 379 cm/s RAP ESTIMATE 10 mmHg TR Peak Gr. 57 mmHg RVSP 67 mmHg LEFT VENTRICLE Normal LV size. Mild/mod. concentric hypertrophy. LVEF appears to be about 55- 60% at the base, decreasing to about 10% at the apex. Apical septal and apical aneurysm is present and visualized in loops 2, 10-15, 18, 28-31. Aneurysm appears is old from a known priior [place]. AORTIC VALVE 23 mm Lantigua Eugenio 3 Ultra Resilia TAVR is in place and functioning well. Peak / mean Bioprosthetic AoV with gradients of 26 / 14 mmHg. Peak velocity is measured at 2.56 m/s. ?Trivial central regurgitation. MITRAL VALVE Mild MV annular calcification and leaflet thickening without stenosis. Mild regurgitation. TRICUSPID VALVE TV appears structurally normal with moderate regurgitation, increased from 12/07/24 exam. PERICARDIUM Normal pericardium. No effusion. Other Information Study Quality: Adequate, but difficult due to lack of patient cooperation. Patient seemed confused, was noncoooperative with positioning for exam. Discharge Diagnosis\Comment: Mechanical fall Left femur neck fracture, comminuted and displaced Acute metabolic encephalopathy Unknown baseline mental status Chronic hyponatremia Prerenal PREMA Related tubular stasis CAD status post CABG status post TAVR AFib status post pacemaker VT status post AICD Heart failure with reduced ejection fraction of 40-50% Hypertension Diabetes Hyperlipidemia Operations\Procedures: None Consultants: None Complications: None Condition on DC: Stable for transfer Discharge Summary: HPI AT THE TIME OF ADMISSION PER ADMITTING PHYSICIAN An 84-year-old female who is a poor historian with unknown baseline mental status presented to the ED after she fell. Patient was not able to describe how she fell. Patient denies dizziness, chest pain, palpitations, shortness of breath prior to the fall. Patient also denies involuntary bowel and bladder movements. Patient denies burning micturition. COURSE IN THE HOSPITAL An 84-year-old female with multiple medical comorbidities presented to the ED after fall. In the ED on further investigations patient was found to have left femoral neck fracture. Patient is admitted for the evaluation management of left femoral neck fracture, displaced comminuted. Initially she was on NPO over the night but we initiated. She was on the fall precautions. Altered mental state could be secondary to her chronic microvascular ischemia and chronic hyponatremia. Mild Pream was noted. We held clopidogrel, Eliquis in view of possible transfer and surgery. As we could not have the claim specialist services until of this month, we initiated transferred to higher level of care/[facility]. Examination the time of discharge Vital Signs Date Time Temp Pulse Resp B/P (MAP) Pulse Ox O2 Delivery O2 Flow Rate FiO2 12/29/24 18:30 90 12/29/24 18:00 98.1 18 146/81 (102) 93 Room Air 12/29/24 09:00 0.0 General: Elderly female, Confused, not oriented to time place and person HEENT: PERRLA, no icterus, pallor, lymphadenopathy, carotid bruit Respiratory system: Bilateral vesicular breath sounds heard, no adventitious breath sounds, linear surgical scar in the chest CVS: Irregularly irregular heart rate, S1-S2 heard, grade 3/6 ejection click murmur in the aortic area GI: Soft, nontender, no organomegaly, no guarding/rigidity, bowel sounds present Neuro: Could not be elicited as the patient was non cooperative and has pain in the left lower extremity Extremities: Tenderness in the left lower extremity, was unable to move, No edema cyanosis clubbing/deformities Skin: Warm and dry Laboratory Tests Test 12/28/24 17:18 12/28/24 18:34 12/28/24 21:33 12/29/24 00:25 Glucometer 110 mg/dl White Blood Count 10.1 X10'3 Red Blood Count 3.32 X10'6 Hemoglobin 10.8 g/dl Hematocrit 31.9 % Mean Corpuscular Volume 96.2 FL Mean Corpuscular Hemoglobin 32.6 PG Mean Corpuscular Hemoglobin Concent 33.9 g/dL Red Cell Distribution Width 13.4 % Platelet Count 212 X10'3 Mean Platelet Volume 7.1 FL Neutrophils (%) (Auto) 80.7 % Lymphocytes (%) (Auto) 8.7 % Monocytes (%) (Auto) 10.3 % Eosinophils (%) (Auto) 0.1 % Basophils (%) (Auto) 0.2 % Neutrophils # (Auto) 8.1 X10'3 Lymphocytes # (Auto) 0.9 X10'3 Monocytes # (Auto) 1.0 X10'3 Eosinophils # (Auto) 0.0 X10'3 Basophils # (Auto) 0.0 X10'3 CBC Comment Sodium Level 127 MMOL/L Potassium Level 3.7 MMOL/L Chloride Level 94 MMOL/L Carbon Dioxide Level 23.7 MMOL/L Anion Gap 9 Blood Urea Nitrogen 15 MG/DL Creatinine 0.98 MG/DL Estimated GFR/1.73 m2 54 ML/MIN BUN/Creatinine Ratio 15.3 Glucose Level 105 MG/DL Calcium Level 8.4 MG/DL Albumin 3.3 G/DL Chemistry Comments Urine Specimen Description Non-specified Urine Color Yellow Urine Clarity Clear Urine pH 6.5 Urine Specific [place] 1.010 Urine Protein Negative mg/dl Urine Glucose (UA) Negative mg/dl Urine Ketones Negative mg/dl Urine Occult Blood Negative Urine Nitrite Negative Urine Bilirubin Negative Urine Urobilinogen 1.0 E.U/dL Urine Leukocyte Esterase Negative Urine Culture Indicated Not ind Volume Urine Centrifuged 10 ml Urine Comment Lactic Acid Level 1.5 MMOL/L Test 12/29/24 06:31 12/29/24 09:44 White Blood Count 10.0 X10'3 Red Blood Count 2.88 X10'6 Hemoglobin 9.5 g/dl Hematocrit 27.9 % Mean Corpuscular Volume 96.9 FL Mean Corpuscular Hemoglobin 33.0 PG Mean Corpuscular Hemoglobin Concent 34.1 g/dL Red Cell Distribution Width 13.3 % Platelet Count 204 X10'3 Mean Platelet Volume 7.2 FL Neutrophils (%) (Auto) 82.8 % Lymphocytes (%) (Auto) 6.4 % Monocytes (%) (Auto) 10.6 % Eosinophils (%) (Auto) 0 % Basophils (%) (Auto) 0.2 % Neutrophils # (Auto) 8.3 X10'3 Lymphocytes # (Auto) 0.6 X10'3 Monocytes # (Auto) 1.1 X10'3 Eosinophils # (Auto) 0.0 X10'3 Basophils # (Auto) 0.0 X10'3 CBC Comment Sodium Level 134 MMOL/L 134 MMOL/L Potassium Level 3.3 MMOL/L Chloride Level 101 MMOL/L Carbon Dioxide Level 23.9 MMOL/L Anion Gap 9 Blood Urea Nitrogen 10 MG/DL Creatinine 0.89 MG/DL Estimated GFR/1.73 m2 61 ML/MIN BUN/Creatinine Ratio 11.2 Glucose Level 100 MG/DL Hemoglobin A1c 5.7 % Osmolality 273 MOSM/K Calcium Level 7.6 MG/DL Magnesium Level 1.8 MG/DL Albumin 2.8 G/DL Triglycerides Level 51 MG/DL Cholesterol Level 86 MG/DL LDL Cholesterol 22 MG/DL HDL Cholesterol 51 MG/DL Cholesterol/HDL Ratio 1.7 Chemistry Comments *Problems/Diagnosis: (1) Fall (2) Left displaced femoral neck fracture (3) Acute metabolic encephalopathy (4) Chronic hyponatremia (5) PREMA (acute kidney injury) (6) S/P TAVR (transcatheter aortic valve replacement) (7) Status post coronary artery bypass graft (8) Status post placement of cardiac pacemaker (9) Afib (10) CAD (coronary artery disease) (11) Aortic stenosis (12) Heart failure with reduced ejection fraction (13) Diabetes mellitus (14) Hypertension Total Time Spent on D/C: > 30 Minutes Date of Service: Dec 29, 2024 Billing Provider: MELISSA RODRIGUEZ MD Common Visit Codes: 76274-JSE/OBS DISCH DAY >30min KAYLA DALY, RES Dec 29, 2024 18:21 MELISSA RODRIGUEZ MD Dec 30, 2024 10:03
--- NOTE | 2024-12-29 18:53 | PROGRESS NOTE- Residence ---
Progress Note - Resident Providers to CC Resident Creating Document: TESSSARAIALONZO, WALKER ~ Antibiotic Timeout Antibiotic Ordered?: No Subjective Seen and examined the patient at bedside. She is responding to verbal commands and she is not complaining of the pain over the left hip. Objective Vital Signs Date Time Temp Pulse Resp B/P (MAP) Pulse Ox O2 Delivery O2 Flow Rate FiO2 12/29/24 18:30 90 12/29/24 18:00 98.1 18 146/81 (102) 93 Room Air 12/29/24 09:00 0.0 Result Diagram: 12/29/24 0631 12/29/24 0944 General: Elderly female, alert, awake, oriented to person, place but not the time. HEENT: PERRLA, no icterus, pallor, lymphadenopathy, carotid bruit Respiratory system: Bilateral vesicular breath sounds heard, no adventitious breath sounds, linear surgical scar in the chest CVS: Irregularly irregular heart rate, S1-S2 heard, grade 3/6 ejection click murmur in the aortic area GI: Soft, nontender, no organomegaly, no guarding/rigidity, bowel sounds present Neuro: Could not be elicited as the patient was non cooperative and has pain in the left lower extremity Extremities: Tenderness in the left lower extremity, was unable to move, No edema cyanosis clubbing/deformities . Apparent limb shortening on left lower extremity. Skin: Warm and dry Advance Care Planning Advanced Care plannin - 30 Minutes Plan Plan Assessment: An 84-year-old female with multiple medical comorbidities presented to the ED after fall. In the ED on further investigations patient was found to have left femoral neck fracture. Patient is admitted for the evaluation management of left femoral neck fracture. Plan: Mechanical fall Left femoral neck fracture Syncope, rule out Hip x-ray: Left Comminuted, displaced left femoral neck fracture. Pain management NPO Consult with Orthopedic in a.m. Fall precautions PT eval and treat AMS Unknown baseline mental status Head CT: Patchy white matter hypodensity is commonly due to chronic microvascular ischemia. No significant interval change. UA: Normal Chest x-ray: Cardiomegaly with mild congestion. Continue to monitor telemetry, follow up with orthostatic vitals Chronic hyponatremia Cause Under evaluation Sodium levels: 127 Continue to monitor sodium levels Follow up with the urine and serum osmolality, urine sodium Mild prerenal PREMA probably secondary to renal tubular stasis Elevated creatinine Continue to monitor BMP CAD status post CABG status post TAVR Pending med rec Start aspirin after surgery Consider optimization with GDM T AFib status post pacemaker VT status post AICD [id number]: 7 EKG: Atrial flutter, rate controlled Pending med rec HFrEF, EF: 40-50% Not in acute exacerbation Continue optimization GDM T after medical reconciliation HTN Currently blood pressure is in the softer side Hold antihypertensives Diabetes mellitus Follow up on A1c HLD Follow up on lipid panel On 12/29/2024: Patient had a left femur neck fracture and assessment specialist is not available for on-call in the hospital. We initiated the transfer to other higher level of care and [facility] accepted but beds are not available at [facility](per RN). We initiated the heart healthy diet. Managing the pain with Tylenol 650 mg q.6 H p.r.n. for mild pain. Her mentation is improved and seems to be at baseline. We held the clopidogrel, apixaban and we continued aspirin, amiodarone, acetamide, losartan, metoprolol. Vitals are stable. Disposition: Likely transferred to [facility] for assessment specialist services. Alonzo Lamar MD Internal Medicine, PGY 2 Date of Service: Dec 29, 2024 Billing Provider: MELISSA RODRIGUEZ MD, VENKATESH, RES Dec 29, 2024 18:53 MELISSA RODRIGUEZ MD Dec 30, 2024 10:02
[2024-12-29] MEDS: heparin, porcine 5000 units/ml vial SQ SCH (20:30)
[2024-12-29] MEDS: midodrine 5mg tablet PO SCH (20:30)
[2024-12-29] MEDS: OMEGA-3/DHA/EPA/FISH OIL 1 EACH CAPSULE.DR PO SCH (20:31)
[2024-12-29] MEDS: aspirin 81mg, enteric-coated 1 TAB TABLET.DR PO SCH (20:31)
[2024-12-30] MEDS ORDERED: metoprolol succinate 25mg (24-HOUR) SR. Tablet PO SCH (08:00)
== END 2024-12-30 04:05 | disposition short-term general hospital (02) | DRG 640 ==
LOC: ER 17:00 → ED HOLD 22:53 → PCU 3S 12-29 07:30 → ORTHO 4S 12-29 14:09
PROVIDERS: ADMIT Internal Medicine; ATTEND Internal Medicine
DX: E87.1 Hypo-osmolality and hyponatremia (principal); G93.41 Metabolic encephalopathy; S72.092A Other fracture of head and neck of left femur, initial encounter for closed fracture; N17.0 Acute kidney failure with tubular necrosis; I50.20 Unspecified systolic (congestive) heart failure; I48.91 Unspecified atrial fibrillation; I11.0 Hypertensive heart disease with heart failure; W18.39XA Other fall on same level, initial encounter; I25.10 Atherosclerotic heart disease of native coronary artery without angina pectoris; Z88.5 Allergy status to narcotic agent; Z79.01 Long term (current) use of anticoagulants; Z88.2 Allergy status to sulfonamides; Z79.899 Other long term (current) drug therapy; I25.2 Old myocardial infarction; Z95.1 Presence of aortocoronary bypass graft; Y93.89 Activity, other specified; Y92.89 Other specified places as the place of occurrence of the external cause; Y99.8 Other external cause status
CPT/HCPCS: 36415; 70450; 71045; 73502; 80048; 80061; 80076; 81003; 82948; 83036; 83605; 83735; 83930; 84295; 84439; 84443; 85025; 86885; 86900; 86901; 87040; 87081; 93005; 93308; 99285; G0378; J1644; J7030